=== PATIENT | male | born 1980 | race Caucasian/White ===

== ENCOUNTER 2018-09-03 21:48 | Emergency (ER) | payer MEDICAID ==
[~2018-09-03] VITALS: Ht 180.3 cm; Wt 124.7 kg
[2018-09-03 22:00] VITALS: BP_SYST 156
--- NOTE | 2018-09-03 22:10 | NUR ---
Pt placed in room 3 side rails up
--- NOTE | 2018-09-03 22:12 | NUR ---
Pt C/O toothache x 1 month and new onset of headache and nausea for the past 4 days. Pt states his dentist said he might have a gum abcess over the phone due to his symptoms. Pt has a dentist appointment on . Pt denies any chest pain, shortness of breath or any other symptoms at this time. Vitals are stable, will continue to monitor.
--- NOTE | 2018-09-03 22:17 | NUR ---
Nasrin mejia in ED - 09/03/18 at 2218 by [email or web address] PALMA Gutierrez at bedside examining patient.
--- NOTE | 2018-09-03 22:48 | NUR ---
ER Dr. Gutierrez at bedside examining patient.
[2018-09-03] MEDS ORDERED: KETOROLAC TROMETHAMINE 30 MG VIAL IM ONE (23:00)
[2018-09-03] MEDS ORDERED: cefTRIAXone 1 GM VIAL IM ONE (23:00)
[2018-09-03 23:46] VITALS: BP_SYST 156
--- NOTE | 2018-09-03 23:49 | NUR ---
Patient given written and verbal discharge instructions and verbalizes understanding. ER MD discussed with patient the results and treatment provided. Patient in stable condition. ID arm band removed. Rx of Augmentin and Motrin given. Patient educated on pain management and to follow up with PMD. Pain Scale 0/10. Opportunity for questions provided and answered. Medication side effect fact sheet provided.
== END 2018-09-03 23:46 | disposition home or self-care (01) ==
LOC: SED 21:48
DX: K04.7 Periapical abscess without sinus (principal); I10 Essential (primary) hypertension
CPT/HCPCS: 96372; 99283; J0696; J1885

== ENCOUNTER 2018-10-10 18:56 | Emergency (ER) | payer MEDICAID ==
[~2018-10-10] VITALS: Ht 177.8 cm; Wt 125.2 kg
[2018-10-10 19:36] VITALS: BP_SYST 139
[2018-10-10 20:37] VITALS: BP_SYST 139
== END 2018-10-10 20:37 | disposition home or self-care (01) ==
LOC: SED 18:56
DX: K04.7 Periapical abscess without sinus (principal); R11.0 Nausea; R19.7 Diarrhea, unspecified; I10 Essential (primary) hypertension
CPT/HCPCS: 99283

== ENCOUNTER 2020-06-30 13:22 | Emergency (ER) | payer MEDICAID, SELFPAY ==
[~2020-06-30] VITALS: Ht 180.3 cm; Wt 120.2 kg
--- NOTE | 2020-06-30 13:30 | NUR ---
Patient triaged and placed tent VSS and patient appears in no acute distress at this time. Accompanied by self , awaiting available bed, and MD notified of need for MSE.
[2020-06-30 13:42] VITALS: BP_SYST 114
--- NOTE | 2020-06-30 14:00 | NUR ---
Pt in the tent, A&Ox4, pt presents to ER with cough congestion and bodyaches, pt states he was exposed to covid , skin pink and warm, cap refill <3.
--- NOTE | 2020-06-30 14:10 | NUR ---
Dr Ellington evaluating patient in the tent
--- NOTE | 2020-06-30 14:30 | NUR ---
Patient given written and verbal discharge instructions and verbalizes understanding. ER MD discussed with patient the results and treatment provided. Patient in stable condition. ID arm band removed. Rx of Zinc , Azithromycin and Prednisone given. Patient educated on pain management and to follow up with PMD. Pain Scale 0/10 . Opportunity for questions provided and answered. Medication side effect fact sheet provided.
== END 2020-06-30 14:30 | disposition home or self-care (01) ==
LOC: SED 13:22
DX: U07.1 COVID-19 (principal); I10 Essential (primary) hypertension; J45.909 Unspecified asthma, uncomplicated
CPT/HCPCS: 36415; 36600; 71045; 82803-TC; 99284

== ENCOUNTER 2020-07-04 16:48 | Emergency (ER) | payer MEDICAID, SELFPAY ==
[~2020-07-04] VITALS: Ht 177.8 cm; Wt 121.1 kg
[2020-07-04 17:01] VITALS: BP_SYST 121
--- NOTE | 2020-07-04 17:04 | NUR ---
TRIAGED IN TENT
--- NOTE | 2020-07-04 17:20 | NUR ---
DR. KONG EXAMINING PT
[2020-07-04] MEDS ORDERED: DEXAMETHASONE SOD PHOSPHATE 10 MG/ML VIAL IM ONE (17:30)
[2020-07-04 17:59] VITALS: BP_SYST 121
--- NOTE | 2020-07-04 17:59 | NUR ---
Patient given written and verbal discharge instructions and verbalizes understanding. ER MD discussed with patient the results and treatment provided. Patient in stable condition. ID arm band removed. Rx of PROMETHAZINE, TRAMADOL given. Patient educated on pain management and to follow up with PMD. Pain Scale 0/10 Opportunity for questions provided and answered. Medication side effect fact sheet provided.
== END 2020-07-04 17:59 | disposition home or self-care (01) ==
LOC: SED 16:48
DX: R07.89 Other chest pain (principal); I10 Essential (primary) hypertension; J45.909 Unspecified asthma, uncomplicated
CPT/HCPCS: 71045; 96372; 99283; J1100; 99285